=== PATIENT | male | born 1940 | race Caucasian/White ===

== ENCOUNTER 2017-03-21 07:56 | Day surgery (SDC) | payer MEDICARE, OTHER, SELFPAY ==
[2017-03-21 09:05] VITALS: BP 127/87; PULSE 61; RESP 18; TEMP 36.7; O2SAT 95; BMI 27.9
[2017-03-21 10:53] VITALS: BP 155/74; PULSE 51; RESP 18; O2SAT 98
[2017-03-21 10:58] VITALS: BP 149/76; PULSE 51; RESP 18; O2SAT 99
[2017-03-21 11:03] VITALS: BP 132/65; PULSE 52; RESP 18; O2SAT 100
[2017-03-21 11:08] VITALS: BP 132/63; PULSE 51; RESP 18; O2SAT 100
[2017-03-21 11:18] VITALS: BP 145/77; PULSE 61; RESP 18; TEMP 36.6; O2SAT 96
== END 2017-03-21 11:32 | disposition home or self-care (01) ==
LOC: OR 08:00
PROVIDERS: Family Provider Family Medicine; PCP Family Medicine; Visit Provider Ophthalmology
DX: H26.8 Other specified cataract (principal)
CPT/HCPCS: 66982; V2632

== ENCOUNTER 2017-04-04 07:00 | Day surgery (SDC) | payer MEDICARE, OTHER, SELFPAY ==
[2017-04-03 15:03] VITALS: BMI 27.4
[2017-04-04] VITALS (7 sets, daily range): BP systolic 122–147; BP diastolic 66–78; PULSE 50–59; RESP 16–20; TEMP 36.6–36.7; O2SAT 94–99; BMI 27.4
== END 2017-04-04 09:57 | disposition home or self-care (01) ==
LOC: OR 07:02
PROVIDERS: Family Provider Family Medicine; PCP Family Medicine; Visit Provider Ophthalmology
DX: H26.8 Other specified cataract (principal)
CPT/HCPCS: 66982; V2632

== ENCOUNTER 2022-07-19 09:46 | Day surgery (SDC) | payer MEDICARE, OTHER, SELFPAY ==
[2022-07-19 10:09] VITALS: BP 151/81; PULSE 67; RESP 18; TEMP 36.2; O2SAT 97; BMI 21.4
[2022-07-19 11:13] VITALS: BP 151/81; PULSE 67; RESP 18; TEMP 36.2; O2SAT 97
== END 2022-07-19 10:34 | disposition home or self-care (01) ==
PROVIDERS: PCP Pediatrics; Visit Provider Ophthalmology
PROC: (CPT 66821; principal; 2022-07-19 09:00)
DX: H26.40 Unspecified secondary cataract (principal)
CPT/HCPCS: 66821

== ENCOUNTER 2025-01-24 18:22 | Emergency (ER) | payer MEDICARE, OTHER, SELFPAY ==
[2025-01-24 18:34] VITALS: BP 143/77; PULSE 43; O2SAT 96
--- NOTE | 2025-01-24 18:44 | ECG_ITS ---
APPROVED REPORT Exam: Resting ECG HR:83 bpm ECG Measurements Heart Rate 83 AXES QRSd 81 QRS 98 QT 275 T -33 QTc 315 Conclusion Atrial fibrillation PVCs Right axis No STEMI Electronically signed by : Salvador Call, 01/25/2025 01:29:34
--- NOTE | 2025-01-24 18:46 | XR_ITS ---
PROCEDURE INFORMATION: Exam: XR Chest Exam date and time: 01/24/2025 7:25 PM Age: 84 years old Clinical indication: Other: AMS TECHNIQUE: Imaging protocol: Radiologic exam of the chest. Views: 1 view. COMPARISON: CT ABDOMEN PELVIS WO CON 01/24/2025 7:22 PM FINDINGS: Lungs: There are moderate centrilobular emphysematous changes of the lungs with an apical gradient. Pleuroparenchymal scarring of the lung bases with subsegmental atelectasis is present without consolidations or pleural effusions that project above the diaphragm. Pleural spaces: Unremarkable. No pleural effusion. No pneumothorax. Heart/Mediastinum: Unremarkable. No cardiomegaly. Bones/joints: Unremarkable. IMPRESSION: 1. There are moderate centrilobular emphysematous changes of the lungs with an apical gradient. 2. Pleuroparenchymal scarring of the lung bases with subsegmental atelectasis is present without consolidations or pleural effusions that project above the diaphragm.
--- NOTE | 2025-01-24 18:48 | ED_ITS ---
<Statement entered by Salvador Call DO - 01/25/25 01:13> I was consulted by the RADHA, and we discussed the complexity of problems being addressed. I approved the treatment and management plan for this patient's care in the emergency department, thus performing a substantive portion of the medical decision making. Salvador Call DO Discharge Plan Disposition Patient Disposition: Xfer Other Condition: Fair Prescriptions Prescriptions: No Action clopidogrel 75 MG tablet 75 mg PO DAILY tamsulosin [Flomax] 0.4 MG capsule 0.4 mg PO DAILY furosemide 20 MG tablet 20 mg PO DIRECTED Rx Instructions: every other day atorvastatin 20 mg tablet 20 mg PO DAILY pantoprazole 40 mg tablet,delayed release (DR/EC) 40 mg PO DAILY aspirin 81 mg Tablet 81 mg PO DAILY Referrals Follow up/Referrals: Oscar Hart [Primary Care Provider, Medical] - See instructions Clinical Impressions Clinical Impression: Altered mental status, Witnessed seizure-like activity, SDH (subdural hematoma) Stand Alone Forms Stand Alone Forms: Transfer Record - ED Instructions Patient Instructions: DI for Altered Mental Status Print Language Print Language: Czech Discharge ED Provider: Salvador Call General Adult HPI General Chief complaint: Altered Mental Status Stated complaint: Falling around/ altered mental status Time Seen by Provider: 01/24/25 18:27 Mode of Arrival: Ambulatory Source of Information: Patient, Relative and Medical Record Limitations: Altered Mental Status History of Present Illness HPI narrative: 84-year-old male presents to the emergency department accompanied by his family members for altered mental status/confusion, last known well was around 6:30 PM/7 PM last night where the patient was at his normal neurological baseline at dinner. Patient was first noticed to be outside of baseline around 4 or 5 PM today, patient was noted to be staring at the TV , and having some confusion not answering questions appropriately, patient's pain ember states he is not acting himself . He also had his walker out , which is abnormal for him, when asked about this patient told fan members that he was falling around , no witnessed fall, patient is GCS of 14 confused, obeys commands and localizes pain, thus review of systems was deferred, patient's son, significant other as well as sister who was on the phone, provide most of the history, patient is with a past medical history consistent with prior TIA/CVA, atrial fibrillation previously on anticoagulation therapy with Eliquis, has been off the medication for 6 months due to risk factor stratification performed by daughter and PCP, was previously on Coumadin, no longer taking this medication, GERD, previous history of ulcer, coronary artery disease previous history of stents on dual antiplatelet therapy, hyperlipidemia, BPH, patient also has history of contrast media, that is consistent with a rash , also spinal cord stimulator implanted. Patient's had similar episode of altered mental status several years ago, was admitted to the hospital service, found to have metabolic encephalopathy. Initial triage vitals are unremarkable. Please note that above description of symptoms, in this electronic medical record under categorization of recalled from ER triage doctor by RN are reflective of an initial nursing assessment, however, is not reflective of my full history and physical exam that was personally taken and clarified. Consequentially, this preceding description of symptoms, which may include the patient's categorized chief complaint in the EMR, do not reflect my personal clinical impression, and the ultimate description of history of present illness and patient stated complaints should be deferred to this section of the note. Unless stated otherwise or congruent with this section of the note, additional signs, symptoms, or incongruence should be interpreted as inaccurate with my clinical impression. Onset (ago): hour(s) Related Data Home Medications ?Medication ?Instructions ?Recorded ?Confirmed clopidogrel 75 mg tablet 75 mg PO DAILY Blood thinner 03/21/17 01/24/25 furosemide 20 mg tablet 20 mg PO DIRECTED Fluid 0 03/21/17 01/24/25 tamsulosin 0.4 mg capsule (Flomax) 0.4 mg PO DAILY PRO STATE 03/21/17 01/24/25 aspirin 81 mg tablet 81 mg PO DAILY 01/24/2501/11 atorvastatin 20 mg tablet 20 mg PO DAILY 01/24/2501/11 pantoprazole 40 mg tablet,delayed 40 mg PO DAILY 01/2401/24/25 release Allergies Allergy/AdvReac Type Severity Reaction Status Date / Time Iodinated Contrast Media AdvReac Rash Verified 01/24/25 19:11 (Contrast) [facility] Disclaimer: The information contained in this section may have been updated after the patient was seen, as this information can be updated by other users. Medical History (Updated 01/24/25 @ 20:14 by JUANI Gudino) History of NM (myocardial infarction) HLD (hyperlipidemia) Surgical History (Updated 07/19/22 @ 10:07 by Kavon Taylor RN) No history of previous surgery Family History (Updated 07/19/22 @ 10:08 by Kavon Taylor RN) Other Family history of diabetes mellitus Social History (Updated 07/19/22 @ 10:09 by Kavon Taylor RN) Smoking Status: Current every day smoker alcohol intake: never current occupational status: retired Travel in the last 8 weeks?: None caffeine: Yes (COFFEE) Have you lived/traveled outside US in past 30 days?: No Contact w/someone who lives/traveled outside US past 30 days?: No Exposure to someone with infectious disease in past 14 days?: No Do you have a fever (greater than 100.4 F or 38 C)?: No Have you tested positive for COVID-19?: No Exposed to someone with COVID-19 in past 14 days?: No Do you have a sore throat?: No Do you have a cough?: No Do you have any weakness?: No Do you have any diarrhea?: No Are you experiencing any unusual bleeding?: No Do you have any muscle aches/pain?: No Do you have any abdominal pain?: No Are you experiencing loss of taste or smell?: No ROS Obtained: Yes All systems reviewed & no additional complaints except as documented Physical Exam General General appearance: alert and in no apparent distress Head Head exam: atraumatic and normocephalic Eye Eye exam: Present PERRL and EOMI ENT ENT exam: Present mucous membranes moist Neck Neck exam: Present normal inspection Chest Chest inspection: Present normal inspection and symmetric chest wall rise Respiratory Respiratory exam: Present normal lung sounds bilaterally; Absent respiratory distress, wheezes or stridor Cardiovascular Cardiovascular exam: Present regular rate and normal rhythm Abdominal Exam Abdominal exam: Present soft and tenderness; Absent guarding, rebound or rigidity Extremities Exam Extremities exam: Present normal inspection Neurological Exam Neurological exam: Present alert and other (GCS of 14, confusion, which is outside of baseline, moves extremities to command to the upper and lower extremities, 5 out of 5 strength in the bilateral upper extremities, 4-5 strength in bilateral lower extremities, with some effort related weakness drift that does hit bed bilaterally to the bilat); Absent oriented X3 Psychiatric Psychiatric exam: Present normal affect Skin Skin exam: Present warm and dry Medical Decision Making Medical Records Medical records reviewed: Yes I reviewed the patient's medical records. Screening: Per USPSTF and CDC recommendations, given the prevalence of disease in our region, it is our hospital?s policy to screen for HIV and viral Hepatitis for all patients aged 18 and over and those with ongoing risk factors. Rodo Inquiry Pt receiving controlled substance: No Rodo was queried for this patient: No Vital Signs: 01/24/25 18:34 01/24/25 18:53 01/24/25 20:22 Temperature 98.5 F 98.5 F Temperature Source Oral Oral Pulse Rate 43 L 81 Pulse Rate [Apical] 83 Respiratory Rate 18 17 Blood Pressure 143/77 H 147/79 H Blood Pressure [Right Arm] 143/79 H Blood Pressure Mean [Right Arm] 100 Blood Pressure Source Automatic Cuff Blood Pressure Source [Right Arm] Automatic Cuff Blood Pressure Position Supine Blood Pressure Position [Right Arm] Sitting 02 Sat by Pulse Oximetry 96 96 Oxygen Delivery Method Room Air Room Air Lab Data Lab results reviewed: Yes I reviewed the patient's lab results. Lab Results 01/24/25 19:00: WBC 7.2, RBC 4.64, Hgb 14.4, Hct 43.6, MCV 94.0, MCH 31.0, MCHC 33.0, RDW 13.2, Plt Count 198, MPV 10.1, Neut % (Auto) 65.4, Lymph % (Auto) 23.1, Borden % (Auto) 5.7, Eos % (Auto) 3.8, Baso % (Auto) 1.7, Neut # (Auto) 4.7, Lymph # (Auto) 1.7, Borden # (Auto) 0.4, Eos # (Auto) 0.3, Baso # (Auto) 0.1, PT 12.4, INR 1.13 H, APTT 24.5, Sodium 138, Potassium 3.9, Chloride 99, Carbon Dioxide 34 H, Anion Gap 8.9, BUN 19, Creatinine 1.00, Estimated Creat Clear 49, Estimated GFR 71, Est GFR ( Amer) 86, Glucose 103 H, Lactate 1.4, Calcium 8.8, Magnesium 0.9 L, Total Bilirubin 0.4, AST 26, ALT 14, Alkaline Phosphatase 118, Ammonia < 9 L, Troponin I < 0.01, NT-Pro-B Natriuret Pep 966 H, Total Protein 6.8, Albumin 3.9, Globulin 2.9, Albumin/Globulin Ratio 1.3, Lipase 136, HCV Ab DONNA w/Rflx PCR Qn Negative, HIV Ag/Ab Combo Qual Negative 01/24/25 19:33: SARS-CoV-2 (PCR) Not detected, Influenza A Untype (PCR) Not detected, Influenza Type B (PCR) Not detected 01/24/25 19:00 01/24/25 19:00 Orders (Tests/Meds): ED MEDICATIONS Generic Name Dose Route Start Last Admin Trade Name Freq PRN Reason Stop Dose Admin Magnesium Sulfate 2 gm in 50 mls @ 50 mls/hr 01/24/25 19:36 01/24/25 19:42 Magnesium Sulfate 2gm/50ml Premix IV 01/24/25 20:35 50 mls/hr ONCE ONE Administration Discontinued Medications Generic Name Dose Route Start Last Admin Trade Name Freq PRN Reason Stop Dose Admin Levetiracetam 1,250 mg/ Sodium 112.5 mls @ 225 mls/hr 01/24/25 19:47 01/24/25 20:01 Chloride IV 01/24/25 19:48 225 mls/hr ONCE ONE Administration ORDERS Category Date Time Status CT abdomen pelvis wo con Stat Cat Scan 01/24/25 19:[address] cervical spine wo con Stat Cat Scan 01/24/25 18:[address] head/brain wo con Stat Cat Scan 01/24/25 18:53 Completed XR chest portable Stat Exams 01/24/25 18:46 Completed Ammonia Stat Lab 01/24/25 19:00 Completed Complete Blood Count Auto Diff Stat Lab 01/24/25 19:00 Completed Comprehensive Metabolic Panel Stat Lab 01/24/25 19:00 Completed Drug Screen,Urine Stat Lab 01/24/25 18:32 Ordered HIV Combo Routine Lab 01/24/25 19:00 Completed Hepatitis C Ab Qual. W/ RFX Routine Lab 01/24/25 19:00 Completed Lactic Acid Stat Lab 01/24/25 19:00 Completed Lipase Stat Lab 01/24/25 19:00 Completed Magnesium Stat Lab 01/24/25 19:00 Completed NT Pro Brain Natriuretic Pep. Stat Lab 01/24/25 19:00 Completed PT INR [Prothrombin Time INR] Stat Lab 01/24/25 19:00 Completed PTT [Activated Partial Thrombo Time] Stat Lab 01/24/25 19:00 Completed Rapid PCR Covid and Flu A/B Stat Lab 01/24/25 19:33 Completed Troponin I Q3H Lab 01/24/25 21:45 Ordered Troponin I Q3H Lab 01/25/25 00:45 Ordered Troponin I Stat Lab 01/24/25 19:00 Completed Urinalysis and Microscopic Stat Lab 01/24/25 18:32 Ordered Medical Decision Narrative: 84-year-old male presents the emergency department with altered mental status last known well was 6:37 PM last night. Differential diagnose include but not limited to, cardiac arrhythmia, electrolyte disturbance, pneumonia, metabolic encephalopathy, uremic cephalopathy, intracranial mass, intracranial hemorrhage, encephalopathy, medication side effect, acute UTI, pyelonephritis among others I discussed this patient's case with the attending physician Dr. Call he saw and examined the patient as well Will obtain basic laboratory studies, EKG, chest x-ray, CT abdomen without contrast, rapid PCR COVID and flu, CT head without contrast, CT cervical, without contrast, coags ammonia UDS urinalysis lactic acid lipase level magnesium level proBNP, troponin and UA. CBC unremarkable Coags are notable for minimal INR elevation 1.13 Hypomagnesia him at 0.9, thus will place a 2 g IV magnesium, no lactic acidosis. Reviewed the patient's chest x-ray along the corresponding radiologic report, there are moderate central lobar emphysematous changes of lungs with apical gradient, pleural-parenchymal scarring in the lung base with subsegmental atelectasis is present without consolidations or pleural effusions that project above of the diaphragm. I reviewed the patient's CT head without contrast on the corresponding radiologic report, left parietal hypoattenuating subdural collection measuring 6.7 x 5.2 x 1.68 m right ring subacute subdural hematoma, there are few peripheral hyperintense foci which may represent acute on chronic hemorrhage, multiple subcortical and deep obtaining white matter foci present likely related to small vessel stents and changes can also seen a prior infectious infarct or insult/prior traumatic events. Also of note patient had what appeared to be witnessed seizure-like activity by patient's family and nursing staff at approximately, 740 and 745, once again witnessed by family nursing staff that look like repeating twitching movements of the patient's eyes and face, the lasted for a minute and a half. I was called to the bedside and examined the patient along with the attending physician Dr. Call. Will initiate seizure precautions and load the patient with IV Keppra (1250) milligram. Will also reach out to [facility] for possible transfer. I discussed all these recommendations and results with the patient and family the bedside as well as patient's power of assistant district attorney Tanja Reese (daughter) over the phone at approximately 7:50 PM, patient is documented DNR. However, would like to treat/assess options at higher level of care/neurosurgical abilities. I reviewed the patient's CT cervical spine without contrast on the corresponding radiologic report, no evidence of acute osseous abnormality. Troponin is less than 0.01, proBNP is mildly elevated 966. I reviewed the patient's CT and pelvis without contrast on the corresponding radiologic report, no CT evidence of acute intra-abdominal process, solitary pulmonary nodule measuring 7.7 mm for patient's low risk recommend CT chest in 6 to 12 months. I discussed this patient's case with Dr. Chand at approximately 8 PM, she is in agreement with the current treatment plan/transfer plan for acute/subacute subdural hematoma. Patient be transferred to the [place] emergency department ED to ED transfer. I discussed need for transfer with the patient's family at the bedside patient's family in agreement with the current treatment plan/transfer plan. Of note, COVID-19 and influenza are negative via rapid antigen swab. Critical Care Critical Care Time Critical Care Time: No
[2025-01-24 18:53] VITALS: BP 143/79; PULSE 83; RESP 18; TEMP 36.9; O2SAT 96; BMI 22.6
--- NOTE | 2025-01-24 18:53 | CT_ITS ---
PROCEDURE INFORMATION: Exam: CT Head Without Contrast Exam date and time: 01/24/2025 7:17 PM Age: 84 years old Clinical indication: Altered mental status/memory loss; Additional info: Altered middle status/possible fall TECHNIQUE: Imaging protocol: Computed tomography of the head without contrast. Radiation optimization: All CT scans at this facility use at least one of these dose optimization techniques: automated exposure control; mA and/or kV adjustment per patient size (includes targeted exams where dose is matched to clinical indication); or iterative reconstruction. COMPARISON: No relevant prior studies available. FINDINGS: Brain: There is moderate diffuse cerebral volume loss present. Multiple subcortical and deep hypoattenuating white matter foci are present, likely related to small vessel senescent changes and can also be seen with prior infectious / inflammatory insult, or prior traumatic events. Left parietal hypoattenuating subdural collection measuring 6.7 x 5.2 x 1.6 cm favoring subacute subdural hematoma. Cerebral ventricles: No ventriculomegaly. Paranasal sinuses: Visualized sinuses are unremarkable. No fluid levels. Mastoid air cells: Visualized mastoid air cells are well aerated. Bones: Unremarkable. No acute fracture. Soft tissues: Unremarkable. IMPRESSION: 1. Left parietal hypoattenuating subdural collection measuring 6.7 x 5.2 x 1.6 cm favoring subacute subdural hematoma. There are a few peripheral hyperattenuating foci which may represent acute on chronic hemorrhage. 2. Multiple subcortical and deep hypoattenuating white matter foci are present, likely related to small vessel senescent changes and can also be seen with prior infectious / inflammatory insult, or prior traumatic events.
--- NOTE | 2025-01-24 18:53 | CT_ITS ---
PROCEDURE INFORMATION: Exam: CT Cervical Spine Without Contrast Exam date and time: 01/24/2025 7:20 PM Age: 84 years old Clinical indication: Other: Altered mental status/possible fall TECHNIQUE: Imaging protocol: Computed tomography of the cervical spine without contrast. Radiation optimization: All CT scans at this facility use at least one of these dose optimization techniques: automated exposure control; mA and/or kV adjustment per patient size (includes targeted exams where dose is matched to clinical indication); or iterative reconstruction. COMPARISON: CT HEAD/BRAIN WO CON 01/24/2025 7:17 PM FINDINGS: Bones: Moderate loss of intervertebral disc space with degenerative changes involving C3 through C7. The vertebral bodies are maintained in height and alignment. No evidence of acute osseous abnormality. Lungs: Lung apices are normal. Soft tissues: Unremarkable. IMPRESSION: No evidence of acute osseous abnormality.
--- NOTE | 2025-01-24 19:10 | CT_ITS ---
PROCEDURE INFORMATION: Exam: CT Abdomen And Pelvis Without Contrast Exam date and time: 01/24/2025 7:22 PM Age: 84 years old Clinical indication: Other: Altered mental status abd pain TECHNIQUE: Imaging protocol: Computed tomography of the abdomen and pelvis without contrast. Radiation optimization: All CT scans at this facility use at least one of these dose optimization techniques: automated exposure control; mA and/or kV adjustment per patient size (includes targeted exams where dose is matched to clinical indication); or iterative reconstruction. COMPARISON: No relevant prior studies available. FINDINGS: Tubes, catheters and devices: Implanted neural stimulation device with leads extending to posterior to S1 neural foramina. Lungs: Right middle lobe 7.7 mm nodule, axial image 1. Liver: Normal. No mass. Gallbladder and biliary ducts: There are surgical clips within the gallbladder fossa. Pancreas: Normal. No ductal dilation. Spleen: Normal. No splenomegaly. Adrenal glands: Normal. No mass. Kidneys and ureters: Multiple Bosniak 1 renal cystic lesions defined as homogeneous and fluid density (-9 to 20 HU), no septations or calcifications, having yusuf smooth and thin. Largest cyst measures 1.9 cm. No follow-up recommended. Stomach and bowel: Unremarkable. No obstruction. No mucosal thickening. Appendix: No evidence of appendicitis. Intraperitoneal space: Unremarkable. No free air. No significant fluid collection. 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 Lymph nodes: Unremarkable. No enlarged lymph nodes. Urinary bladder: Unremarkable as visualized. Reproductive: Unremarkable as visualized. Bones/joints: Chronic appearing L1 compression fracture with 80% loss of height. Moderate loss of intervertebral disc space with degenerative changes involving L4 through S1. Grade 1 anterolisthesis related to degenerative changes of L4-L5. Soft tissues: Normal. IMPRESSION: 1. No CT evidence of acute intra-abdominal process. 2. Solitary pulmonary nodule measuring 7.7 mm. For patients at low risk (minimal or absent history of smoking and of other known risk factors), recommend CT Chest at 6-12 months, then consider CT Chest at 18-24 months. For patients at high risk (history of smoking or of other known risk factors), recommend CT Chest at 6-12 months, then CT Chest at 18-24 months. (Reference: Kathrin) COMMENTS: Consistent with the [employer]'s Incidental Findings Committee white paper (J Am Rama Radiol 2018): Any incidental renal lesion less than 1 cm or classified as too small to characterize, or any incidental cystic renal lesion characterized as simple-appearing, is likely benign. No follow-up imaging is recommended for these lesions per consensus recommendations based on imaging criteria. REFERENCES: Kathrin Britton, et al. Guidelines for Management of Incidental Pulmonary Nodules Detected on CT Images: From the Fleischner Society 2017. Radiology. 2017;284(1):228-243.
[2025-01-24 19:11] LABS: Hematocrit 43.6 % (42.0-52.0); Hemoglobin 14.4 g/dL (14.1-18.0); Immature Granulocytes % 0.3 %; Mean Corpuscular HGB Conc 33.0 g/dL (31.8-35.4); Mean Corpuscular Hemoglobin 31.0 pg (27.0-31.2); Mean Corpuscular Volume 94.0 fl (80-94); Nucleated Red Blood Cells % 0 %; Platelet Count 198 K/mm3 (142-424); Red Blood Count 4.64 M/mm3 (4.60-6.20); Red Cell Distribution Width-SD 44.8 fL; White Blood Count 7.2 K/mm3 (4.8-10.8)
[2025-01-24 19:22] LABS: INR 1.13 (0.9-1.1); Prothrombin Time 12.4 seconds (10.1-12.5)
[2025-01-24 19:25] LABS: Activated Partial Thrombo Time 24.5 seconds (22.8-30.6)
[2025-01-24 19:30] LABS: Ammonia < 9 umol/L (9-30)
[2025-01-24 19:31] LABS: Alanine Aminotransferase 14 U/L (12-78); Albumin Level 3.9 g/dl (3.5-5.0); Albumin/Globulin Ratio 1.3 (1.1-1.8); Alkaline Phosphatase 118 U/L (38-126); Anion Gap 8.9 mEq/L (5-15); Aspartate Amino Transferase 26 U/L (17-59); Bilirubin,Total 0.4 mg/dl (0.2-1.3); Blood Urea Nitrogen 19 mg/dl (9-20); Calcium 8.8 mg/dl (8.4-10.2); Carbon Dioxide 34 mmol/L (22.0-30.0); Chloride 99 mmol/L (98-107); Creatinine Clearance Estimated 49 mL/min (50-200); Creatinine,Serum 1.00 mg/dl (0.66-1.25); Estimated Glomerular Filt Rate 71 ml/min (>60); GFR (African American) 86 ML/MIN (>60); Globulin 2.9 g/dL (1.3-3.2); Glucose 103 mg/dl (74-100); Lipase 136 U/L (23-300); Potassium 3.9 mmoL/L (3.5-5.1); Sodium 138 mmol/L (136-145); Total Protein,Serum 6.8 g/dl (6.3-8.2)
[2025-01-24 19:33] LABS: Magnesium 0.9 mg/dl (1.6-2.3)
--- NOTE | 2025-01-24 19:34 | PC.NURSE ---
critical Mag called from lab. RADHA Shemar notified at 193.
[2025-01-24 19:37] LABS: Coronavirus 19, PCR Not Detected (NotDetected); Influenza A, PCR Not Detected (NotDetected); Influenza B, PCR Not Detected (NotDetected)
[2025-01-24 19:42] LABS: NT Pro Brain Natriuretic Pep. 966 pg/mL (0-450)
[2025-01-24] MEDS: MAGNESIUM SULFATE IN WATER 2 GM/50 ML PIGGYBACK IV (19:42)
[2025-01-24 19:44] LABS: Troponin I < 0.01 ng/ml (0.00-0.034)
[2025-01-24] MEDS: levETIRAcetam 1,250 MG in 0.9 % SODIUM CHLORIDE 100 ML 225 MG IV (20:01)
[2025-01-24 20:11] VITALS: BP 147/79; PULSE 72; RESP 17; O2SAT 98
--- NOTE | 2025-01-24 20:15 | PC.NURSE ---
Report called to Sherley ARTEAGA at emergency department
[2025-01-24 20:19] LABS: Hepatitis C Ab Qual. W/ RFX NEGATIVE (Negative)
[2025-01-24 20:22] VITALS: BP 147/79; PULSE 81; RESP 17; TEMP 36.9; O2SAT 98
[2025-01-24 20:30] VITALS: BP 147/99; PULSE 68; RESP 15; O2SAT 97
== END 2025-01-24 21:05 | disposition other institution (70) ==
PROVIDERS: Physician Assistant; Emergency Provider Student in an Organized Health Care Education/Training Program; PCP Pediatrics
DX: S06.5X1A Traumatic subdural hemorrhage with loss of consciousness of 30 minutes or less, initial encounter (principal); R56.9 Unspecified convulsions; R41.82 Altered mental status, unspecified
CPT/HCPCS: 70450; 71045; 72125; 74176; 80053; 82140; 83605; 83690; 83735; 83880; 84484; 85025; 85610; 85730; 86803; 87389; 87636; 93005; 96365; 96367; 99285; J1953; J3475